=== PATIENT | male | born 1990 | race African-American/Black ===

== ENCOUNTER → 2018-08-02 17:21 | Emergency (ER) | payer SELFPAY ==
[~2018-08-02 17:21] MED LIST: Al Hydrox/Mg Hydrox/Simet LIQ* 30 ML UDC PO ONE; Lidocaine 2% VISCOUS* 15 ML UDC PO ONE
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
[2018-08-02 21:12] VITALS: BP 116/66
== END | disposition home or self-care (01) ==
LOC: ED 17:21
DX: J04.0 Acute laryngitis (principal); R05 Cough; K20.9 Esophagitis, unspecified; J02.9 Acute pharyngitis, unspecified; Z72.0 Tobacco use; F12.10 Cannabis abuse, uncomplicated
CPT/HCPCS: 70360; 99282; A9270-GY